=== PATIENT | male | born 1980 | race Hispanic/Latino ===

== ENCOUNTER 2023-05-08 10:44 | Emergency (ER) | payer OTHER ==
[2023-05-08 11:27] LABS: Absolute Lymphocytes (CBC) 1.6 K/uL (0.7-4.9); Hematocrit 42.4 % (39.6-49.0); MCV 95.8 fL (80-100); MPV 7.5 fL (7.6-11.3); Platelets 224 thou/uL (152-406); RBC Red Blood Cell Count 4.43 M/uL (4.33-5.43)
[2023-05-08 11:30] LABS: Protime INR 0.91
[2023-05-08 11:35] LABS: Specific Gravity 1.012 (1.005-1.030); Urine Bacteria None Seen /HPF (<20); Urine Bilirubin NEGATIVE (Negative); Urine Blood Negative (Negative); Urine Clarity Clear (Clear); Urine Color Light-Yellow (Yellow); Urine Glucose 4+ (Over) (Negative); Urine Protein 1+ (Negative); Urine RBC <5 /HPF (None Seen); Urine Urobilinogen Normal (Normal); Urine pH 6.5 (5.0-7.0)
[2023-05-08 11:42] LABS: Barbiturates NEGATIVE (NEGATIVE); Benzodiazepines NEGATIVE (NEGATIVE); Cocaine NEGATIVE (NEGATIVE); METHAMPHETAM NEGATIVE (NEGATIVE); Methadone NEGATIVE (NEGATIVE); Opiates NEGATIVE (NEGATIVE); Phencyclidine NEGATIVE (NEGATIVE); THC Cannibis POSITIVE (NEGATIVE)
[2023-05-08 11:43] LABS: ALT/SGPT 131 U/L (16-61); AST/SGOT 104 U/L (15-37); Alkaline Phosphatase 77 U/L (45-117); BUN Blood Urea Nitrogen 8 mg/dL (7-18); Bicarbonate 28 mEq/L (21-32); Bilirubin Direct 0.2 mg/dL (0-0.2); Bilirubin Indirect, Calculated 0.5 mg/dL (0.2-0.8); Bilirubin Total 0.7 mg/dL (0.2-1.0); Glomerular Filtration Rate 96 ml/min (=/>90); Glucose Level 242 mg/dL (74-106); Potassium 3.5 mEq/L (3.5-5.1); Protein, Total 8.4 g/dL (6.4-8.2); Sodium Level 133 mEq/L (136-145)
[2023-05-08] MEDS ORDERED: NA CHLORIDE 0.9% 0 ML ONE (12:00)
--- NOTE | 2023-05-08 12:12 | EKG ---
Test Date: 2023-05-08 Test Time: 11:12:21 Shoe Stamper: JAZMIN MEASUREMENT RESULTS: Intervals: Rate: 108 NJ: 158 QRSD: 72 QT: 320 QTc: 428 [place]: P: 50 NJ: 158 QRS: 92 T: 54 INTERPRETIVE STATEMENTS: Sinus tachycardia Rightward axis Borderline ECG No previous ECG available for comparison Electronically Signed On 05-08-23 12:11:25 CDT by Rafa Monson
--- NOTE | 2023-05-08 12:29 | EDPHYS ---
Physician Documentation [facility] Name: Zan Barbour Age: 43 yrs Sex: Male : 1980 Arrival Date: 05/08/2023 Time: 10:44 Bed IW9 Private MD: ED Physician Tavon Monroy HPI: 05/08 11:05 This 43 yrs old Male presents to ER via EMS with complaints of Psych Problem. cp 11:05 The patient presents to the emergency department with insomnia. cp 11:05 Onset: The symptoms/episode began/occurred 2 day(s) ago. cp 11:05 Associated signs and symptoms: Pertinent positives; delusions, Pertinent negatives: cp chest pain, fever, headache, homicidal ideation, suicide ideation. 11:05 Severity of symptoms: in the emergency department the symptoms are unchanged despite cp home interventions. Historical: - Allergies: 10:48 No Known Allergies; eh3 - PMHx: 10:48 Prediabetes; eh3 - Immunization history:: Adult Immunizations unknown. - Social history:: Smoking status: Patient reports the use of cigarette tobacco products, denies chronic smoking, but will smoke occasionally, Patient uses alcohol, on a daily basis. ROS: 11:10 Constitutional: Negative for body aches, chills, fever, poor PO intake. cp 11:10 Eyes: Negative for injury, pain, redness, and discharge. cp 11:10 ENT: Negative for drainage from ear(s), ear pain, sore throat, difficulty swallowing, difficulty handling secretions. 11:10 Cardiovascular: Negative for chest pain. 11:10 Respiratory: Negative for cough, shortness of breath, wheezing. 11:10 Abdomen/GI: Negative for abdominal pain, vomiting, diarrhea, constipation. 11:10 Neuro: Negative for altered mental status, headache, weakness. 11:10 Psych: Positive for auditory hallucinations, insomnia, Negative for homicidal ideation, suicide gesture, suicidal ideation. 11:10 All other systems are negative. Exam: 11:15 Constitutional: The patient appears in no acute distress, alert, awake, non-toxic, well cp developed, well nourished. 11:15 Head/Face: Normocephalic, atraumatic. cp 11:15 Eyes: Periorbital structures: appear normal, Pupils: equal, round, and reactive to light and accomodation, Extraocular movements: intact throughout, Conjunctiva: normal, no exudate, no injection, Sclera: no appreciated abnormality, Lids and lashes: appear normal, bilaterally. 11:15 ENT: External ear(s): are unremarkable, Nose: is normal, Mouth: Lips: moist, Oral mucosa: pink and intact, moist, Posterior pharynx: is normal, airway is patent, no erythema, no exudate. 11:15 Neck: ROM/movement: is normal, is supple, without pain, no range of motions limitations. 11:15 Chest/axilla: Inspection: normal, Palpation: is normal, no crepitus, no tenderness. 11:15 Cardiovascular: Rate: tachycardic, Rhythm: regular. 11:15 Respiratory: the patient does not display signs of respiratory distress, Respirations: normal, no use of accessory muscles, no retractions, labored breathing, is not present, Breath sounds: are clear throughout, no decreased breath sounds, no stridor, no wheezing. 11:15 Abdomen/GI: Inspection: abdomen appears normal, Palpation: abdomen is soft and non-tender, in all quadrants. 11:15 Back: pain, is absent, ROM is normal. 11:15 Neuro: Orientation: to person, place \T\ time. Mentation: is normal, Motor: moves all fours, strength is normal, Sensation: is normal, Gait: is steady, at a normal pace, without difficulty. 11:15 Psych: Behavior/mood is cooperative, Affect is animated, Patient has no thoughts/intents to harm self or others. Judgement / Insight is normal. Vital Signs: 10:48 BP 153 / 94; Pulse 110; Resp 17; Temp 98.7(O); Pulse Ox 99% on R/A; Weight 102.06 kg; eh3 Height 5 ft. 10 in. ; 11:30 BP 145 / 94; Pulse 112; Resp 16; Pulse Ox 98% on R/A; eh3 10:48 Body Mass Index 32.28 (102.06 kg, 177.8 cm) 3 MDM: 10:49 Patient medically screened. 12:26 Data reviewed: vital signs, nurses notes. ED course: attempt to contact patient at cp number in chart. Unable to leave a message. 05/08 11:00 Order name: Acetaminophen; Complete Time: 12:24 cp 05/08 11:00 Order name: Basic Metabolic Panel; Complete Time: 12:24 cp 05/08 11:00 Order name: CBC with Diff; Complete Time: 12:24 cp 05/08 11:00 Order name: ETOH Level; Complete Time: 12:24 cp 05/08 11:00 Order name: Hepatic Function; Complete Time: 12:24 cp 05/08 11:00 Order name: PT-INR; Complete Time: 12:24 cp 05/08 11:00 Order name: Ptt, Activated; Complete Time: 12:24 cp 05/08 11:00 Order name: Salicylate; Complete Time: 12:24 cp 05/08 11:00 Order name: Urinalysis w/ reflexes; Complete Time: 12:24 cp 05/08 11:00 Order name: Urine Drug Screen; Complete Time: 12:24 05/08 11:03 Order name: Glucose, Ancillary Testing; Complete Time: 11:26 EDSD 05/08 11:00 Order name: EKG; Complete Time: 11:01 05/08 11:00 Order name: EKG - Nurse/Tech; Complete Time: 11:10 05/08 11:00 Order name: IV Saline Lock; Complete Time: 11:20 05/08 11:00 Order name: Labs collected and sent; Complete Time: 11: 05/08 11:00 Order name: Suicide Screening ([place]); Complete Time: 11:07 cp Administered Medications: No medications were administered Disposition: 18:24 Co-signature as Attending Physician, Tavon Monroy MD I reviewed the patient's care rn provided by the Advanced Practice Provider and agree with the diagnosis and treatment plan. Disposition Summary: 05/08/23 12:29 Discharge Ordered Location: Home cp Problem: new cp Symptoms: are unchanged cp Condition: Stable cp Diagnosis - Hyperglycemia, unspecified cp - Alcohol use, unspecified with intoxication, uncomplicated cp Followup: cp - With: Private Physician - When: 1 - 2 days - Reason: Recheck today's complaints Discharge Instructions: - Discharge Summary Sheet cp - Alcohol Intoxication cp - Hyperglycemia cp - Alcohol Abuse and Nutrition cp - Blood Glucose Monitoring, Adult cp Forms: - Medication Reconciliation Form cp - Thank You Letter cp - Antibiotic Education cp - Prescription Opioid Use cp - Patient Portal Instructions cp - Leadership Thank You Letter cp Signatures: Dispatcher [employer] Tavon Cochran MD MD rn Yemi Day PA PA cp Hall, Erin, RN RN eh3 Corrections: (The following items were deleted from the chart) 05/09 12:27 08 11:05 Associated signs and symptoms: Pertinent negatives: cp cp
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
[2023-05-08 13:12] VITALS: TEMP 98.7
[2023-05-08 13:13] VITALS: BP 145/94; O2SAT 98
== END 2023-05-08 13:07 | disposition home or self-care (01) ==
LOC: ER 10:44
DX: R73.9 Hyperglycemia, unspecified (principal); F10.929 Alcohol use, unspecified with intoxication, unspecified; F17.210 Nicotine dependence, cigarettes, uncomplicated
CPT/HCPCS: 36415; 80048; 80076; 80143; 80179; 80307; 81001; 82077; 82947; 85025; 85610; 85730; 93005; 99285; J7030

== ENCOUNTER 2024-07-15 14:20 | Inpatient (IN) | payer OTHER ==
[2024-07-15] MEDS ORDERED: NA CHLORIDE 0.9% 1,000 ML ONE ×2 (15:15→17:03)
[2024-07-15] MEDS ORDERED: DIAZEPAM 10 MG/2 ML INJ SYRINGE ONE ×2 (15:15→16:44)
[2024-07-15 15:16] LABS: PT Prothrombin Time 11.1 SECONDS (9.4-12.5); Protime INR 0.99
[2024-07-15 15:17] LABS: Absolute Lymphocytes (CBC) 0.8 K/uL (0.7-4.9); Absolute Monocytes 0.6 K/uL (0.1-1.3); Absolute Neutrophil 3.7 K/uL (1.8-8.0); Basophils % 0.4 % (0-1.3); Eosinophils % 0.6 % (0-4.4); Hematocrit 45.8 % (39.6-49.0); Hemoglobin 15.5 g/dL (13.6-17.9); Lymphocytes % 14.9 % (15.3-44.8); MCH 32.4 pg (27.0-35.0); MCHC 33.9 g/dL (32.0-36.0); MCV 95.6 fL (80-100); MPV 7.9 fL (7.6-11.3); Monocytes % 11.5 % (3.3-12.3); Neutrophils % 72.6 % (41.7-73.7); Platelets 174 thou/uL (152-406); RBC Red Blood Cell Count 4.79 M/uL (4.33-5.43); Red Cell Distribution Width 14.7 % (12.1-15.2)
[2024-07-15 15:29] LABS: Albumin 4.2 g/dL (3.4-5.0); Anion Gap 12.7 mEq/L (5.0-15.0); Bilirubin Direct 0.3 mg/dL (0-0.2); Bilirubin Indirect, Calculated 0.6 mg/dL (0.2-0.8); Bilirubin Total 0.9 mg/dL (0.2-1.0); Globulin 4.4 g/dL (2.3-3.5); Potassium 3.7 mEq/L (3.5-5.1); Protein, Total 8.6 g/dL (6.4-8.2)
--- NOTE | 2024-07-15 16:12 | P.HP ---
Certification for Inpatient Patient admitted to: Inpatient With expected LOS: >2 Midnights Practitioner: I am a practitioner with admitting privileges, knowledge of patient current condition, hospital course, and medical plan of care. Services: Services provided to patient in accordance with Admission requirements found in Title 42 Section 412.3 of the Code of Federal Regulations Patient History Date of Service: 07/15/24 - Past Medical/Surgical History -: ETOH dependence with abuse - Social History Smoking Status: Current some day smoker Alcohol use: Yes CD- Drugs: No Caffeine use: Yes Physical Examination - Studies Laboratory Data (last 24 hrs) 07/15/24 07/15/24 07/15/24 14:57 14:57 14:57 WBC 5.10 Hgb 15.5 Hct 45.8 Plt Count 174 PT 11.1 INR 0.99 Sodium 128 L Potassium 3.7 BUN 6 L Creatinine 1.30 Glucose 317 H Total Bilirubin 0.9 AST 150 H ALT 255 H Alkaline Phosphatase 51 Assessment and Plan - Plan Alcohol abuse with DTs Hypertension - Advance Directives Does patient have a Living Will: No Does patient have a Durable POA for Healthcare: No
[2024-07-15] MEDS ORDERED: SODIUM CHLORIDE 0.9% 10ML INJ IV PRN ×2 (16:44→16:56)
[2024-07-15] MEDS ORDERED: PROMETHAZINE INJ 25 MG/ML AMP IV PRN (16:44)
--- NOTE | 2024-07-15 16:57 | P.HP ---
Certification for Inpatient Patient admitted to: Inpatient With expected LOS: >2 Midnights <Rachele Chavarria Maurilio - Last Filed: 07/15/24 17:12> Patient History Date of Service: 07/15/24 Reason for admission: DT, tachycardia/hypertension, DM, History of Present Illness: Mr. Barbour is a 44-year-old male with past medical history of diabetes and alcohol abuse. He has been to rehab on 1 occasion last year and it "did not work". He states he has very high anxiety at all times and has been drinking alcohol daily for most of his adult life. He has been drinking 15-20 hard seltzers a day. This week he started feeling very poorly so to "self medicate" he started drinking more. Mr. Barbour started having significant nausea and vomiting and was unable to hold down medications or alcohol. He states he began hallucinating, having tremors, palpitations, and chest pain. He presented to the emergency department for these complaints. He will be admitted to ICU for a Precedex drip and control of his signs and symptoms. Home medications list reviewed: Yes - Past Medical/Surgical History Has patient received pneumonia vaccine in the past: No Diabetic: Yes -: ETOH dependence with abuse -: DM -: right wrist Psychosocial/ Personal History: Drinks daily for most of his adult life. High anxiety always. Drinks 15-20 hard seltzers daily. Began vomiting and had to self medicate with more ETOH. Started to vomit so much he could not keep ETOH or anything else down, started shaking, having chest pain, palpitations, hallucinations. Denies SI, HI - Family History Father -: Diabetes Mother -: Diabetes Brother -: Other (see notes) (ETOH abuse) - Social History Smoking Status: Current some day smoker Alcohol use: Yes CD- Drugs: No Caffeine use: Yes Place of Residence: Home <Rachele Chavarria Maurilio - Last Filed: 07/15/24 17:12> Date of Service: 07/15/24 <Angel Raymundo - Last Filed: 07/16/24 17:02> Review of Systems General: Weakness, Malaise, As per HPI Eyes: Unremarkable ENT: Unremarkable Respiratory: Unremarkable Cardiovascular: Chest Pain, Palpitations, Light Headedness Gastrointestinal: Nausea, Vomiting Genitourinary: Unremarkable Musculoskeletal: Other (shaky) Integumentary: Unremarkable Neurological: Weakness, Numbness, Incoordination Lymphatics: Unremarkable <Rachele Chavarria - Last Filed: 07/15/24 17:12> Physical Examination - Vital Signs Pulse: 125 Respirations: 28 Pulse Ox (%): 99 - Physical Exam General: Alert, Oriented x3, Other (tremulous) HEENT: Atraumatic, Normocephalic Neck: Supple Respiratory: Clear to auscultation bilaterally Cardiovascular: Regular rate/rhythm, Normal S1 S2, Other (tachycardic) Capillary refill: <2 Seconds Gastrointestinal: Soft and benign Musculoskeletal: No clubbing, No swelling Integumentary: No rashes Neurological: Normal speech, Other (tremulous), Abnormal tone, Abnormal affect Lymphatics: No axilla or inguinal lymphadenopathy External genitalia: Deferred Rectal: Deferred - Studies Laboratory Data (last 24 hrs) 07/15/24 07/15/24 07/15/24 14:57 14:57 14:57 WBC Hgb Hct Plt Count PT 11.1 INR 0.99 Sodium 128 L Potassium 3.7 BUN 6 L Creatinine 1.30 Glucose 317 H Total Bilirubin 0.9 AST 150 H ALT 255 H Alkaline Phosphatase 51 Lipase 217 H 07/15/24 14:57 WBC 5.10 Hgb 15.5 Hct 45.8 Plt Count 174 PT INR Sodium Potassium BUN Creatinine Glucose Total Bilirubin AST ALT Alkaline Phosphatase Lipase <Rachele Chavarria - Last Filed: 07/15/24 17:12> Assessment and Plan - Plan Alcohol abuse with DTs Hypertension, tachycardia Banana bag at 125ml/hr Precedex 0.5-1mg/kg/hr seizure precautions HOB up 30degrees Clear liquids hourly vitals I&O DM fsbs monitoring SSI GI prophylaxis Protonix 80mg IV x 1 Protonix 40mg IV BID VTE prophylaxis Lovenox TEDS - Advance Directives Does patient have a Living Will: No Does patient have a Durable POA for Healthcare: No - Code Status/Comfort Care Code Status Assessed: Yes (Full) <Rachele Chavarria - Last Filed: 07/15/24 17:12> Critical Care: Yes Time Spent Managing Pts Care (In Minutes): 50 <Angel Raymundo - Last Filed: 07/16/24 17:02> Date of Service: 07/15/24 Patient was seen and examined. Events of the last 24 hours have been noted. Spoke with with MALCOLM regarding patient's clinical picture after evaluating and examining the patient independently. I performed a substantial part of the MDM during this patient's care today. I personally made or approved the documented management plan and acknowledge its risk of complications. I agree with the findings and documentation provided in the MALCOLM's notes. Continue with delirium tremens treatment. Gentle hydration. Patient on Precedex drip and Librium. Continue with ICU monitoring. <Angel Raymundo - Last Filed: 07/16/24 17:02>
--- NOTE | 2024-07-15 16:58 | EDPHYS ---
Physician Documentation [facility] Name: Zan Barbour Age: 44 yrs Sex: Male : 1980 Arrival Date: 07/15/2024 Time: 14:20 Bed 20 Private MD: ED Physician Tavon Monroy HPI: 07/15 14:54 This 44 yrs old Male presents to ER via Ambulatory with complaints of Alcohol rn Withdrawal. 14:54 Patient reports thinks is having alcohol withdrawal. Usually drinks 2 12 packs a day rn reports nausea as well. Denies drug use. Last drink was last night. Was at work today and started uncontrollable shaking.. Onset: The symptoms/episode began/occurred today. Severity of symptoms: At their worst the symptoms were moderate in the emergency department the symptoms are unchanged. The patient has experienced a previous episode. The patient has not recently seen a physician. Patient reports symptoms improved over the last few days once he drinks.. Historical: - Allergies: 14:32 No Known Allergies; iw - Home Meds: 14:32 Clonazepam Oral 5 tabs daily [Active]; Mounjaro 2.5 mg/0.5 mL subcutaneous Pen Injector iw every week [Active]; buspirone 5 mg Oral tablet 2 times per day [Active]; - PMHx: 14:32 prediabetes; iw - Immunization history:: Adult Immunizations up to date. - Infectious Disease History:: Denies. - Family history:: not pertinent. - Hospitalizations: : No recent hospitalization is reported. - Social history:: Smoking status: Patient denies any tobacco usage or history of. ROS: 14:54 Constitutional: Negative for fever, chills, and weight loss, Neck: Negative for injury, rn pain, and swelling, Cardiovascular: Positive for palpitations Respiratory: Negative for shortness of breath, cough, wheezing, and pleuritic chest pain, Abdomen/GI: Positive for nausea MS/Extremity: Negative for injury and deformity, Neuro: Negative for headache, weakness, numbness, tingling, and seizure, Exam: 14:54 Constitutional: This is a well developed, well nourished patient who is awake, alert, rn emotional and tremulous Head/Face: Normocephalic, atraumatic. ENT: Dry mucous membranes Cardiovascular: Tachycardic, regular. Respiratory: No increased work of breathing, no retractions or nasal flaring. Abdomen/GI: Soft, non-tender Neuro: Awake and alert, GCS 15, oriented to person, place, time, and situation. Tongue fasciculations present 15:25 ECG was reviewed by the Attending Physician. rn Vital Signs: 14:29 BP 153 / 98; Pulse 132; Resp 20; Temp 97.3(TE); Pulse Ox 97% on R/A; Weight 105.69 kg; iw Height 5 ft. 10 in. ; Pain 8/10; 16:52 BP 137 / 90; Pulse 117; Resp 18; Pulse Ox 96% on R/A; cm10 19:00 BP 126 / 79; Pulse 113; Resp 18; Pulse Ox 98% ; cp4 14:29 Body Mass Index 33.43 (105.69 kg, 177.8 cm) iw 14:29 Pain Scale: Adult iw MDM: 14:26 Medical Screening Exam initiated rn 16:06 Differential Diagnosis Alcohol withdrawal, delirium tremens. Data reviewed: vital rn signs, nurses notes, lab test result(s), EKG, and as a result, I will admit patient. Consideration of Admission/Observation Patient was admitted/placed on observation. Escalation of care including admission/observation considered. Counseling: I had a detailed discussion with the patient and/or guardian regarding the historical points, exam findings, and any diagnostic results supporting the discharge/admit diagnosis, lab results, the need for further work-up and treatment in the hospital. Response to treatment: the patient's symptoms have mildly improved after treatment, and as a result, I will admit patient. 16:56 ED course: I personally spent 35 minutes engaged in work directly related to the rn individual patient's care. This does not include any time spent performing procedures. The patient has been deemed critically ill because of moderate to severe alcohol withdrawal and delirium tremens requiring multiple doses of IV Valium, fluids and admission to hospital. 07/15 14:32 Order name: CBC with Diff; Complete Time: 15:25 rn 07/15 14:32 Order name: Basic Metabolic Panel; Complete Time: 15:53 rn 07/15 14:32 Order name: ETOH Level; Complete Time: 15:53 rn 07/15 14:32 Order name: LFT's; Complete Time: 15:53 rn 07/15 14:32 Order name: PT-INR; Complete Time: 15:25 rn 07/15 15:06 Order name: Lipase; Complete Time: 16:58 rn 07/15 16:58 Order name: CBC with Automated Diff EDMS 07/15 16:58 Order name: CBC with Automated Diff EDMS 07/15 16:58 Order name: CBC with Automated Diff EDMS 07/15 16:58 Order name: CBC with Automated Diff EDMS 07/15 16:58 Order name: CBC with Automated Diff EDMS 07/15 16:58 Order name: Comprehensive Metabolic Panel EDMS 07/15 16:58 Order name: Comprehensive Metabolic Panel EDMS 07/15 16:58 Order name: Comprehensive Metabolic Panel EDMS 07/15 16:58 Order name: Comprehensive Metabolic Panel EDMS 07/15 16:58 Order name: Comprehensive Metabolic Panel EDMS 07/15 16:58 Order name: Lipid Profile EDMS 07/15 16:58 Order name: Lipid Profile EDMS 07/15 16:58 Order name: Liver (Hepatic) Function EDMS 07/15 16:58 Order name: Liver (Hepatic) Function EDMS 07/15 16:58 Order name: Liver (Hepatic) Function EDMS 07/15 16:58 Order name: Liver (Hepatic) Function EDMS 07/15 16:58 Order name: Liver (Hepatic) Function EDMS 07/15 16:58 Order name: Magnesium EDMS 07/15 16:58 Order name: Magnesium EDMS 07/15 16:58 Order name: Magnesium EDMS 07/15 16:58 Order name: Magnesium EDMS 07/15 16:58 Order name: Magnesium EDMS 07/15 16:58 Order name: Phosphorus EDMS 07/15 16:58 Order name: Phosphorus EDMS 07/15 16:58 Order name: Troponin High Sensitivity EDMS 07/15 16:58 Order name: Troponin High Sensitivity EDMS 07/15 16:58 Order name: Troponin High Sensitivity EDMS 07/15 16:58 Order name: Troponin High Sensitivity EDMS 07/15 16:59 Order name: Lipase EDMS 07/15 16:59 Order name: Lipase EDMS 07/15 19:46 Order name: Glucose, Ancillary Testing EDMS 07/15 14:32 Order name: EKG; Complete Time: 14:32 rn 07/15 14:32 Order name: IV Start; Complete Time: 15:28 rn 07/15 14:32 Order name: EKG - Nurse/Tech; Complete Time: 15: rn 07/15 14:32 Order name: Cardiac monitoring; Complete Time: 15: rn 07/15 14:32 Order name: O2 Sat Monitoring; Complete Time: 15: rn EC:25 Rate is 124 beats/min. Rhythm is regular. QRS [place] is Normal. [place] interval is normal. rn QRS interval is normal. QT interval is normal. No Q waves. T waves are Normal. No ST changes noted. Clinical impression: Sinus tachycardia. Interpreted by me. Reviewed by me. Administered Medications: 15:26 Drug: Diazepam IVP 10 mg IVP once Route: IVP; Site: right antecubital; iw 16:39 Follow up: Response: No adverse reaction cm10 15:26 Drug: NS 0.9% IV 1000 ml IV at 1000 ml once; to be given as a bolus over 60 minutes iw Route: IV; Rate: 1000 ml; Site: right antecubital; 18:21 Follow up: Response: No adverse reaction; IV Status: Completed infusion; IV Intake: cm10 1000ml 16:51 Drug: Diazepam IVP 5 mg IVP once Route: IVP; Site: right antecubital; cm10 18:20 Follow up: Response: No adverse reaction cm10 17:07 Drug: NS 0.9% IV 1000 ml IV at 1000 ml once; to be given as a bolus over 60 minutes cm10 Route: IV; Rate: 1000 ml; Site: right antecubital; 18:20 Follow up: Response: No adverse reaction; IV Status: Completed infusion; IV Intake: cm10 1000ml Disposition Summary: 07/15/24 16:57 Hospitalization Ordered Notes: Hospitalization Status: Inpatient Admission rn Provider: Angel Raymundo rn Condition: Stable rn Problem: new rn Symptoms: have improved rn Bed/Room Type: Standard rn Location: Intensive Care Unit(07/15/24 19:30) vk Room Assignment: 4-(07/15/24 19:30) vk Diagnosis - Alcohol dependence with withdrawal delirium rn Forms: - Medication Reconciliation Form rn - SBAR form rn - Leadership Thank You Letter rn Signatures: Dispatcher [employer] Madison Stroud RN RN Tavon Shaw MD MD rn Martinez, Clarissa, RN RN 10 Vicky Manriquez cp4 Amber Machado Corrections: (The following items were deleted from the chart) 14:32 14:32 CBC+H.LAB.BRZ ordered. EDMS EDMS 14:33 14:32 BASIC METABOLIC PANEL+C.LAB.BRZ ordered. EDMS EDMS 14:33 14:32 ETHANOL+C.LAB.BRZ ordered. EDMS EDMS 14:33 14:32 HEPATIC FUNCTION+C.LAB.BRZ ordered. EDMS EDMS 14:33 14:32 PROTIME (+INR)+COAG.LAB.BRZ ordered. EDMS EDMS 19:30 16:57 Telemetry/MedSurg (Inpatient) susie rowe 19:30 16:57 susie rowe
--- NOTE | 2024-07-15 16:58 | ER ---
Nurse's Notes [facility] Name: Zan Barbour Age: 44 yrs Sex: Male : 1980 Arrival Date: 07/15/2024 Time: 14:20 Bed 20 Private MD: Diagnosis: Alcohol dependence with withdrawal delirium Presentation: 07/15 14:29 Acuity: JAMAL 2 iw 14:30 Chief complaint: Patient states: normally drinks a six pack of seltzer's a night but iw has been on a binge the past 2 weeks, drinking a 12 pack per night, last drink was 1 am. Coronavirus screen: At this time, the client does not indicate any symptoms associated with coronavirus-19. Ebola Screen: No symptoms or risks identified at this time. Initial Sepsis Screen: Does the patient meet any 2 criteria? No. Patient's initial sepsis screen is negative. Does the patient have a suspected source of infection? No. Patient's initial sepsis screen is negative. Onset of symptoms was July 15, 2024. 14:30 Method Of Arrival: Ambulatory iw 21:33 Risk Assessment: Do you want to hurt yourself or someone else? Patient reports no cp4 desire to harm self or others. Historical: - Allergies: 14:32 No Known Allergies; iw - Home Meds: 14:32 Clonazepam Oral 5 tabs daily [Active]; Mounjaro 2.5 mg/0.5 mL subcutaneous Pen Injector iw every week [Active]; buspirone 5 mg Oral tablet 2 times per day [Active]; - PMHx: 14:32 prediabetes; iw - Immunization history:: Adult Immunizations up to date. - Infectious Disease History:: Denies. - Family history:: not pertinent. - Hospitalizations: : No recent hospitalization is reported. - Social history:: Smoking status: Patient denies any tobacco usage or history of. Screenin:51 Clinical [place] Withdrawal Assessment for Alcohol, revised (CIWA-Ar): cm10 Nausea/Vomitin - No nausea or vomiting Headache: 0 - Not present Paroxysmal Sweats: 1 - Barely perceptible sweating, palms moist Anxiety: 4 - Moderately anxious, guarded Agitation: 0 - Normal actiivty Tremor: 4 - Moderate when client's hands extended Auditory Disturbances: 0 - Not present Visual Disturbances: 0 - Not present Tactile Disturbances: 0 - None Orientation and Clouding of Sensorium: 0 - Oriented and can do serial additions Total Score: < 10 Very mild withdrawal. 21:32 [facility] ED Fall Risk Assessment (Adult) History of falling in the last 3 months, cp4 including since admission No falls in past 3 months (0 pts) Confusion or Disorientation No (0 pts) Intoxicated or Sedated No (0 pts) Impaired Gait No (0 pts) Mobility Assist Device Used No (0 pt) Altered Elimination No (0 pt) Score/Fall Risk Level 0 - 2 = Low Risk Oriented to surroundings, Maintained a safe environment, Assessed \T\ reinforced patient's understanding of fall precautions, Hourly rounding (assess needs \T\ fall precautionary measures) done. Abuse screen: Denies threats or abuse. Nutritional screening: No deficits noted. Tuberculosis screening: No symptoms or risk factors identified. Assessment: 15:01 General: Appears uncomfortable, ill, well developed, Behavior is anxious, crying. Pain: iw Complains of pain in back, chest, abdomen, right arm, left arm, right leg and left leg. Neuro: Level of Consciousness is awake, alert, obeys commands, Oriented to person, place, time, situation, Moves all extremities. Cardiovascular: Patient's skin is warm and dry. Respiratory: Respiratory effort is even, unlabored, Respiratory pattern is regular, symmetrical. Derm: Skin is healthy with good turgor. Musculoskeletal: Range of motion: intact in all extremities. Vital Signs: 14:29 BP 153 / 98; Pulse 132; Resp 20; Temp 97.3(TE); Pulse Ox 97% on R/A; Weight 105.69 kg; iw Height 5 ft. 10 in. ; Pain 8/10; 16:52 BP 137 / 90; Pulse 117; Resp 18; Pulse Ox 96% on R/A; cm10 19:00 BP 126 / 79; Pulse 113; Resp 18; Pulse Ox 98% ; cp4 14:29 Body Mass Index 33.43 (105.69 kg, 177.8 cm) iw 14:29 Pain Scale: Adult iw ED Course: 14:21 Patient arrived in ED. mg5 14:26 Tavon Monroy MD is Attending Physician. rn 14:30 Triage completed. iw 14:33 Arm band placed on. iw 14:55 Missed attempt(s): 20 gauge in right antecubital area. Bleeding controlled, band aid iw applied, catheter tip intact. 15:01 Initial lab(s) drawn, by me, sent to lab. Inserted saline lock: 20 gauge in right iw antecubital area, using aseptic technique. Blood collected. Flushed with 10 mL NS. 15:26 Madison Pinto, RN is Primary Nurse. iw 16:39 Rody Castillo, RN is Primary Nurse. cm10 16:57 Angel Raymundo MD is Hospitalizing Provider. rn 17:01 Patient has correct armband on for positive identification. Placed in gown. Bed in low cm10 position. Call light in reach. Side rails up X2. Provided Education on: Need for admission.. 21:32 No provider procedures requiring assistance completed. Patient admitted, IV remains in cp4 place. Administered Medications: 15:26 Drug: Diazepam IVP 10 mg IVP once Route: IVP; Site: right antecubital; iw 16:39 Follow up: Response: No adverse reaction cm10 15:26 Drug: NS 0.9% IV 1000 ml IV at 1000 ml once; to be given as a bolus over 60 minutes iw Route: IV; Rate: 1000 ml; Site: right antecubital; 18:21 Follow up: Response: No adverse reaction; IV Status: Completed infusion; IV Intake: cm10 1000ml 16:51 Drug: Diazepam IVP 5 mg IVP once Route: IVP; Site: right antecubital; cm10 18:20 Follow up: Response: No adverse reaction cm10 17:07 Drug: NS 0.9% IV 1000 ml IV at 1000 ml once; to be given as a bolus over 60 minutes cm10 Route: IV; Rate: 1000 ml; Site: right antecubital; 18:20 Follow up: Response: No adverse reaction; IV Status: Completed infusion; IV Intake: cm10 1000ml Medication: 15:02 VIS not applicable for this client. iw Intake: 18:20 IV: 1000ml; Total: 1000ml. cm10 18:21 IV: 1000ml; Total: 2000ml. cm10 Outcome: 16:57 Decision to Hospitalize by Provider. rn 19:10 Admitted to ER Hold. Please see [facility] for further documentation. cp4 19:10 Condition: stable cp4 19:10 Instructed on the need for admit, 21:39 Patient left the ED. cp4 Signatures: Madison Pinto RN RN iw Tavon Monroy MD MD rn Martinez, Clarissa, RN RN cm10 Isabelle Flores mg5 Vicky Manriquez cp4 Corrections: (The following items were deleted from the chart) 14:32 14:29 BP 153 / 98; Pulse 132bpm; Resp 20bpm; Pulse Ox 97% RA; iw iw 14:34 14:29 BP 153 / 98; Pulse 132bpm; Resp 20bpm; Pulse Ox 97% RA; iw iw
[2024-07-15] MEDS: PANTOPRAZOLE 40 MG INJ IVP ONE (17:00)
[2024-07-15] MEDS: INSULIN REGULAR (HUMAN) 100 UNIT/ML SQ SCH (18:00)
[2024-07-15] MEDS ORDERED: INSULIN REGULAR (HUMAN) 100 UNIT/ML ONE (19:39)
[2024-07-15] MEDS ORDERED: PANTOPRAZOLE 40 MG INJ ONE (19:39)
[2024-07-15] MEDS: METOPROLOL TAR 25 MG TAB PO SCH (22:17)
[2024-07-15] MEDS: DEXMEDETOMIDINE HCL 200 MCG in NA CHLORIDE 0.9% 98 ML IV SCH (22:50)
[2024-07-16] MEDS: chlordiazePOXIDE HCl 25 MG CAP PO SCH
[2024-07-16 05:58] LABS: Absolute Eosinophils 0.1 K/uL (0-0.5); Absolute Monocytes 0.5 K/uL (0.1-1.3); Absolute Neutrophil 2.3 K/uL (1.8-8.0); Basophils % 0.4 % (0-1.3); Eosinophils % 3.4 % (0-4.4); Hematocrit 39.8 % (39.6-49.0); Lymphocytes % 24.7 % (15.3-44.8); MCH 33.2 pg (27.0-35.0); MCHC 35.2 g/dL (32.0-36.0); MCV 94.6 fL (80-100); MPV 7.7 fL (7.6-11.3); Monocytes % 12.8 % (3.3-12.3); Neutrophils % 58.7 % (41.7-73.7); Nucleated Red Blood Cells % 0.1 % (0-0); Platelets 141 thou/uL (152-406); Red Cell Distribution Width 14.7 % (12.1-15.2)
[2024-07-16 05:59] LABS: PT Prothrombin Time 11.9 SECONDS (9.4-12.5); PTT, Activated Partial Thromb 26.4 SECONDS (24.3-36.9); Protime INR 1.06
[2024-07-16 06:11] LABS: Albumin 3.1 g/dL (3.4-5.0); Albumin/Globulin Ratio 0.9 (1.1-1.8); Anion Gap 9.5 mEq/L (5.0-15.0); Bilirubin Direct 0.3 mg/dL (0-0.2); Bilirubin Indirect, Calculated 0.7 mg/dL (0.2-0.8); Globulin 3.6 g/dL (2.3-3.5); Magnesium 1.7 mg/dL (1.6-2.4); Potassium 3.5 mEq/L (3.5-5.1); Protein, Total 6.7 g/dL (6.4-8.2); Troponin High Sensitivity 13.2 pg/mL (<58.9)
[2024-07-16] MEDS: MAGNESIUM SULFATE 1 gm IVPB 1 GM/100 ML BAG IV ONE (06:42)
[2024-07-16] MEDS: POTASSIUM CL SA 10 MEQ TAB PO ONE (06:42)
[2024-07-16] MEDS ORDERED: FLU (Fluarix Triv) TS24-25(6MOS UP)/PF 45 MCG/0.5 ML Syringe IM ONE (07:15)
[2024-07-16] MEDS ORDERED: DEXMEDETOMIDINE HCL 1,000 MCG in NA CHLORIDE 0.9% 490 ML IV SCH (08:00)
[2024-07-16] MEDS: ENOXAPARIN 40 MG/0.4 ML SQ SCH (08:38)
[2024-07-16] MEDS: FOLIC ACID 1 MG, MULTIVITAMINS INJ 10 ML, THIAMINE HCL 100 MG in NA CHLORIDE 0.9% 1,000 ML IV SCH (08:39)
--- NOTE | 2024-07-16 12:19 | EKG ---
Test Date: 2024-07-15 Test Time: 15:21:41 [employer] Washing Machine Operator: DARYL MEASUREMENT RESULTS: Intervals: Rate: 124 [place]: 156 QRSD: 78 QT: 294 QTc: 422 [place]: P: 42 [place]: 156 QRS: 88 T: 47 INTERPRETIVE STATEMENTS: Sinus tachycardia Otherwise normal ECG Compared to ECG 05/08/2023 11:12:21 Right-axis deviation no longer present Electronically Signed On 07-16-24 12:16:56 [employer]PERVISOR [employer] by Chilango Drew
[2024-07-16] MEDS: chlordiazePOXIDE HCl 25 MG CAP PO ONE (16:28)
--- NOTE | 2024-07-16 17:07 | P.PN ---
Subjective Date of Service: 07/16/24 Patient doing well clinically. Slowly improving. Weaned off of Precedex. Increase Librium dosing. Continue with hydration. On beta-elsy for blood pressure control. Anticipate discharge in the morning. Review of Systems 10-point ROS is otherwise unremarkable Physical Examination - Vital Signs Temperature: 97.9 F Blood Pressure: 158/86 Pulse: 82 Respirations: 18 Pulse Ox (%): 100 - Physical Exam General: Alert, In no apparent distress, Oriented x3 Respiratory: Clear to auscultation bilaterally, Normal air movement Cardiovascular: Regular rate/rhythm, Normal S1 S2, No murmurs Gastrointestinal: Normal bowel sounds, Soft and benign, Non-distended, No tenderness Musculoskeletal: No clubbing, No swelling, No tenderness Neurological: Sensation intact, Cranial nerves 3-12 intact - Studies Medications List Reviewed: Yes Assessment & Plan - Problems (Diagnosis) (1) Delirium tremens Current Visit: Yes Status: Acute (2) Alcohol abuse Current Visit: Yes Status: Acute (3) Elevated lipase Current Visit: Yes Status: Acute (4) Type 2 diabetes mellitus Current Visit: Yes Status: Acute (5) Acute hepatitis Current Visit: Yes Status: Acute - Plan Plan: 1. Tapering dose of Librium 2. Wean off of Precedex 3. Continue with multivitamin 4. Clear liquid diet 5. IV fluids 6. Antiemetics as needed 7. GI DVT prophylaxis Discharge Plan: Home Plan to discharge in: Greater than 2 days - Advance Directives Does patient have a Living Will: No Does patient have a Durable POA for Healthcare: No - Code Status/Comfort Care Code Status Assessed: Yes Code Status: Full Code Critical Care: Yes Time Spent Managing PTS Care (In Minutes): 35
[2024-07-16] MEDS: NA CHLORIDE 0.9% 1,000 ML IV SCH (18:41)
[2024-07-16] MEDS: INSULIN REGULAR (HUMAN) 100 UNIT/ML SQ SCH (21:05)
[2024-07-16] MEDS: ZOLPIDEM TARTRATE 5 MG TABLET PO ONE (21:10)
[2024-07-16] MEDS: PANTOPRAZOLE 40 MG INJ IVP SCH (23:10)
[2024-07-17 04:13] VITALS: O2SAT 98
[2024-07-17 05:32] LABS: Absolute Eosinophils 0.2 K/uL (0-0.5); Absolute Lymphocytes (CBC) 1.1 K/uL (0.7-4.9); Absolute Monocytes 0.8 K/uL (0.1-1.3); Absolute Neutrophil 3.9 K/uL (1.8-8.0); Basophils % 0.3 % (0-1.3); Eosinophils % 2.5 % (0-4.4); Hematocrit 42.6 % (39.6-49.0); Hemoglobin 14.6 g/dL (13.6-17.9); Lymphocytes % 18.4 % (15.3-44.8); MCH 32.9 pg (27.0-35.0); MCHC 34.3 g/dL (32.0-36.0); Neutrophils % 64.8 % (41.7-73.7); Platelets 143 thou/uL (152-406); RBC Red Blood Cell Count 4.44 M/uL (4.33-5.43); Red Cell Distribution Width 14.7 % (12.1-15.2)
[2024-07-17 05:48] LABS: Albumin 3.3 g/dL (3.4-5.0); Albumin/Globulin Ratio 0.8 (1.1-1.8); Anion Gap 7.1 mEq/L (5.0-15.0); Bilirubin Direct 0.3 mg/dL (0-0.2); Bilirubin Indirect, Calculated 0.4 mg/dL (0.2-0.8); Bilirubin Total 0.7 mg/dL (0.2-1.0); Magnesium 2.2 mg/dL (1.6-2.4); Potassium 4.1 mEq/L (3.5-5.1); Protein, Total 7.3 g/dL (6.4-8.2); Troponin High Sensitivity 12.4 pg/mL (<58.9)
[2024-07-17 06:15] VITALS: BMI 33.2
[2024-07-17 08:25] VITALS: BP 132/84
[2024-07-17 08:57] VITALS: TEMP 98.6
--- NOTE | 2024-07-17 16:17 | P.DS ---
Admission Date: 07/15/24 Discharge Date: 07/17/24 Reason for Admission: DT, tachycardia/hypertension, DM, Brief History of Present Illness: Mr. Barbour is a 44-year-old male with past medical history of diabetes and alcohol abuse. He has been to rehab on 1 occasion last year and it "did not work". He states he has very high anxiety at all times and has been drinking alcohol daily for most of his adult life. He has been drinking 15-20 hard seltzers a day. This week he started feeling very poorly so to "self medicate" he started drinking more. Mr. Barbour started having significant nausea and vomiting and was unable to hold down medications or alcohol. He states he began hallucinating, having tremors, palpitations, and chest pain. He presented to the emergency department for these complaints. He will be admitted to ICU for a Precedex drip and control of his signs and symptoms. Hospital Course: Pt did well with precedex and then was weaned to librium. He and his fiancee are planning lifestyle changes, follow up with intensive outpatient rehab. He is aware of his dependence and the havoc it is making in his life. He states he will follow up with the [place] [facility] and his Employer is supportive of alternate work location as needed. 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 <OLIVER Portillo - Last Filed: 07/18/24 13:49> Disposition: ROUTINE DISCHARGE Discharge Condition: GOOD Vital Signs/Physical Exam: Temp Pulse Resp BP Pulse Ox 98.6 F 84 26 H 132/84 99 07/17/24 08:00 07/17/24 08:24 07/17/24 08:00 07/17/24 08:24 07/17/24 08:00 General: Alert, In no apparent distress, Oriented x3 HEENT: Atraumatic, Normocephalic, PERRLA Neck: Supple Respiratory: Clear to auscultation bilaterally, Normal air movement Cardiovascular: Normal pulses, Regular rate/rhythm Capillary refill: <2 Seconds Gastrointestinal: Soft and benign Musculoskeletal: No clubbing, No swelling Integumentary: No rashes Neurological: Normal speech, Normal tone, Normal affect Lymphatics: No axilla or inguinal lymphadenopathy External genitalia: Deferred Rectal: Deferred Laboratory Data at Discharge: WBC 6.00 thou/uL (4.3-10.9) 07/17/24 04:49 Hgb 14.6 g/dL (13.6-17.9) 07/17/24 04:49 Hct 42.6 % (39.6-49.0) 07/17/24 04:49 Plt Count 143 thou/uL (152-406) L 07/17/24 04:49 PT 11.9 SECONDS (9.4-12.5) 07/16/24 05:32 INR 1.06 07/16/24 05:32 APTT 26.4 SECONDS (24.3-36.9) 07/16/24 05:32 Sodium 135 mEq/L (136-145) L 07/17/24 04:49 Potassium 4.1 mEq/L (3.5-5.1) D 07/17/24 04:49 BUN 8 mg/dL (7-18) 07/17/24 04:49 Creatinine 0.87 mg/dL (0.70-1.30) 07/17/24 04:49 Glucose 180 mg/dL (74-106) H 07/17/24 04:49 Phosphorus 3.0 mg/dL (2.5-4.9) 07/16/24 05:32 Magnesium 2.2 mg/dL (1.6-2.4) 07/17/24 04:49 Total Bilirubin 0.7 mg/dL (0.2-1.0) 07/17/24 04:49 AST 83 U/L (15-37) H 07/17/24 04:49 ALT 185 U/L (16-61) H 07/17/24 04:49 Alkaline Phosphatase 40 U/L (45-117) L 07/17/24 04:49 Triglycerides 98 mg/dL (<150) 07/16/24 05:32 Cholesterol 210 mg/dL (<200) H 07/16/24 05:32 HDL Cholesterol 59 mg/dL (40-60) 07/16/24 05:32 Cholesterol/HDL Ratio 3.56 07/16/24 05:32 Lipase 210 U/L (13-75) H 07/16/24 05:32 <Chavarria,Rachele Maurilio - Last Filed: 07/17/24 16:14> Vital Signs/Physical Exam: Temp Pulse Resp BP Pulse Ox 98.6 F 84 26 H 132/84 99 07/17/24 08:00 07/17/24 08:24 07/17/24 08:00 07/17/24 08:24 07/17/24 08:00 Laboratory Data at Discharge: WBC 6.00 thou/uL (4.3-10.9) 07/17/24 04:49 Hgb 14.6 g/dL (13.6-17.9) 07/17/24 04:49 Hct 42.6 % (39.6-49.0) 07/17/24 04:49 Plt Count 143 thou/uL (152-406) L 07/17/24 04:49 PT 11.9 SECONDS (9.4-12.5) 07/16/24 05:32 INR 1.06 07/16/24 05:32 APTT 26.4 SECONDS (24.3-36.9) 07/16/24 05:32 Sodium 135 mEq/L (136-145) L 07/17/24 04:49 Potassium 4.1 mEq/L (3.5-5.1) D 07/17/24 04:49 BUN 8 mg/dL (7-18) 07/17/24 04:49 Creatinine 0.87 mg/dL (0.70-1.30) 07/17/24 04:49 Glucose 180 mg/dL (74-106) H 07/17/24 04:49 Phosphorus 3.0 mg/dL (2.5-4.9) 07/16/24 05:32 Magnesium 2.2 mg/dL (1.6-2.4) 07/17/24 04:49 Total Bilirubin 0.7 mg/dL (0.2-1.0) 07/17/24 04:49 AST 83 U/L (15-37) H 07/17/24 04:49 ALT 185 U/L (16-61) H 07/17/24 04:49 Alkaline Phosphatase 40 U/L (45-117) L 07/17/24 04:49 Triglycerides 98 mg/dL (<150) 07/16/24 05:32 Cholesterol 210 mg/dL (<200) H 07/16/24 05:32 HDL Cholesterol 59 mg/dL (40-60) 07/16/24 05:32 Cholesterol/HDL Ratio 3.56 07/16/24 05:32 Lipase 210 U/L (13-75) H 07/16/24 05:32 <OLIVER Portillo - Last Filed: 07/18/24 13:49> Diet: Low sodium Activity: Fall precautions <Rachele Chavarria Maurilio - Last Filed: 07/17/24 16:14> <OLIVER Portillo - Last Filed: 07/18/24 13:49> Home Medications: Metoprolol Tartrate [Lopressor*] 25 mg PO BID 6AM 6PM #60 tab 07/16/24 Pantoprazole [Protonix Tab] 40 mg PO DAILY #30 tab 07/16/24 chlordiazePOXIDE HCl [Chlordiazepoxide HCl] 20 mg PO Q8H #70 cap 07/16/24 New Medications: chlordiazePOXIDE HCl [Chlordiazepoxide HCl] 20 mg PO Q8H #70 cap Metoprolol Tartrate [Lopressor*] 25 mg PO BID 6AM 6PM #60 tab Pantoprazole [Protonix Tab] 40 mg PO DAILY #30 tab Physician Discharge Instructions: Pt did well with precedex and then was weaned to librium. He and his fiancee are planning lifestyle changes, follow up with intensive outpatient rehab. He is aw are of his dependence and the havoc it is making in his life. He states he will follow up with the [facility] and his Employer is supportive of alternate work location as needed. -DC IV and DC home -Follow-up with PCP in 1 to 2 weeks -Please call nursing station at [phone] if any nursing or medication questions -Return to the emergency room if symptoms worsen Followup: Kaylen Gillespie FNP [Primary Care Provider] -
== END 2024-07-17 09:55 | disposition home or self-care (01) | DRG 896 ==
LOC: ER 14:20 → ERHOLD 16:44 → 3RD-ICU 21:00
PROVIDERS: ADMIT Hospitalist; ATTEND Internal Medicine
DX: F10.231 Alcohol dependence with withdrawal delirium (principal); K85.20 Alcohol induced acute pancreatitis without necrosis or infection; N18.6 End stage renal disease; E87.1 Hypo-osmolality and hyponatremia; I12.0 Hypertensive chronic kidney disease with stage 5 chronic kidney disease or end stage renal disease; E11.22 Type 2 diabetes mellitus with diabetic chronic kidney disease; F10.251 Alcohol dependence with alcohol-induced psychotic disorder with hallucinations; K70.10 Alcoholic hepatitis without ascites; F41.9 Anxiety disorder, unspecified; F17.200 Nicotine dependence, unspecified, uncomplicated; R00.0 Tachycardia, unspecified; Z99.2 Dependence on renal dialysis; Z79.899 Other long term (current) drug therapy; Y90.0 Blood alcohol level of less than 20 mg/100 ml
CPT/HCPCS: 36415; 80048; 80053; 80061; 80076; 82077; 82248; 82607; 82947; 83036; 83540; 83690; 83735; 84100; 84484; 85025; 85610; 85730; 93005; 96361; 96374; 99285; J1650; J2470; J3360; J3411; J3475; J7030; J7040

== ENCOUNTER 2025-06-03 07:18 | Day surgery (SDC) | payer OTHER ==
[2025-06-03] MEDS ORDERED: NA CHLORIDE 0.9% 1,000 ML ONE (08:02)
[2025-06-03 08:18] LABS: PT Prothrombin Time 11.5 SECONDS (10-13.0); PTT, Activated Partial Thromb 28.1 SECONDS (27.2-37.4); Protime INR 1.02
[2025-06-03] MEDS ORDERED: FLUMAZENIL 0.1 MG/ML (5 mL VIAL) IV ONE (08:34)
[2025-06-03] MEDS ORDERED: NALOXONE HCL 2 MG/2 ML VIAL ONE (08:35)
[2025-06-03] MEDS ORDERED: FENTANYL CITR 100 MCG/2 ML ONE (08:35)
[2025-06-03] MEDS ORDERED: MIDAZOLAM HCL 2 MG/2 ML INJ ONE (08:35)
[2025-06-03 12:29] VITALS: TEMP 96.8; BMI 33.8
[2025-06-03 12:32] VITALS: BP 117/71; O2SAT 96
--- NOTE | 2025-06-03 14:37 | RAD REPORT ---
EXAMINATION: Abdomen Rp Biopsy Percut INDICATION: diaphragm biopsy Pre-procedure diagnosis: Right supradiaphragmatic/chest wall mass Post-procedure diagnosis: Same as above. COMPLICATIONS: No immediate complications. PROCEDURE DETAILS: Consent: Informed consent for the procedure was obtained following discussion of the risks, benefits and alternatives with the patient. Time-out was performed prior to the procedure. Sedation: Moderate sedation (conscious sedation) Administered by: Nurse, or other independent traine d observer, with level of consciousness and vital signs continuously monitored. Total sedation administered: 0.5 mg Versed and 50 mcg Fentanyl. Total intra-service sedation time: 15 minutes. Biopsy: The area was prepped and draped in the usual sterile fashion. Initial scanning revealed 9 cm right chest wall/supradiaphragmatic mass. Local anesthesia was administered. Under CT guidance, an 18 gauge biopsy needle was advanced to the target and biopsy was performed. Number of specimens/passes: 4 Additional sampling description: None. Preliminary assessment of sample adequacy: Not applicable. The biopsy needle was removed and a sterile dressing was applied. Post-biopsy imaging findings: No immediate complications seen. Additional Details: Estimated blood loss: Less than 10 mL. IMPRESSION: Technically successful CT-guided biopsy of a right supradiaphragmatic/chest wall mass.
== END 2025-06-03 11:06 | disposition home or self-care (01) ==
LOC: DS 07:18
PROVIDERS: ATTEND Surgery
DX: D36.10 Benign neoplasm of peripheral nerves and autonomic nervous system, unspecified (principal)
CPT/HCPCS: 36415; 85610; 82947; 88305; 85730; 49180; J2250; J3010; J7030; 99152; J2310